=== PATIENT | female | born 1990 | race Caucasian/White ===

== ENCOUNTER 2020-10-27 22:25 | Emergency (ER) | payer SELFPAY | END 2020-10-27 23:22 | disposition left against medical advice (07) | LOC: ER1 22:25 | DX: Z53.21 Procedure and treatment not carried out due to patient leaving prior to being seen by health care provider (principal) ==

== ENCOUNTER 2020-10-30 16:41 | Emergency (ER) | payer OTHER ==
[2020-10-30] MEDS ORDERED: DOXYCYCLINE HY100 MG PO (18:16)
[2020-10-30] MEDS ORDERED: FLAGYL500 MG PO (18:16)
[2020-10-30] MEDS ORDERED: OMNICEF 300 MG300 MG PO (18:44)
[2020-11-02 17:10] LABS: CHLAMYDIA BY NAA Negative (Negative); GONOCOCCUS BY NAA Negative (Negative); TRICH VAG BY NAA Positive (Negative)
== END 2020-10-30 19:48 | disposition home or self-care (01) ==
LOC: ER1 16:41
PROVIDERS: Emergency Medicine
DX: A59.9 Trichomoniasis, unspecified (principal); F17.210 Nicotine dependence, cigarettes, uncomplicated; Z20.2 Contact with and (suspected) exposure to infections with a predominantly sexual mode of transmission
CPT/HCPCS: 81001; 84703; 87086; 87210; 87661; 96372; 99283; J0696

== ENCOUNTER 2020-11-12 21:29 | Emergency (ER) | payer OTHER ==
[~2020-11-12 21:29] MED LIST: DOXYCYCLINE HY100 MG PO; FLAGYL500 MG PO; OMNICEF 300 MG300 MG PO
== END 2020-11-12 23:40 | disposition home or self-care (01) ==
LOC: ER1 21:29
DX: Z53.21 Procedure and treatment not carried out due to patient leaving prior to being seen by health care provider (principal)

== ENCOUNTER 2021-02-05 17:40 | Emergency (ER) | payer OTHER ==
[2021-02-05 18:21] LABS: HEMOGLOBIN 14.4 gm/dl (12.3-15.3); RED BLOOD COUNT 4.84 M/UL (4.00-5.10); WHITE BLOOD COUNT 7.4 K/UL (4.5-11.0)
[2021-02-05 18:44] LABS: BUN/CREATININE RATIO 15 (0-10)
[2021-02-05] MEDS ORDERED: BENTYL 20MG TAB20 MG PO (20:31)
[2021-02-05] MEDS ORDERED: ZOFRAN4 MG PO (20:31)
[2021-02-05] MEDS ORDERED: FLORASTOR250 MG PO (20:32)
== END 2021-02-05 21:09 | disposition home or self-care (01) ==
LOC: ER1 17:40
PROVIDERS: Physician Assistant Medical
DX: R10.84 Generalized abdominal pain (principal); R19.7 Diarrhea, unspecified; R11.10 Vomiting, unspecified; F17.210 Nicotine dependence, cigarettes, uncomplicated; Z90.49 Acquired absence of other specified parts of digestive tract
CPT/HCPCS: 80053; 81001; 83690; 85025; 96374; 96375; 99284; J2270; J2405; Q9967

== ENCOUNTER 2021-03-17 14:44 | Emergency (ER) | payer OTHER ==
[~2021-03-17 14:44] MED LIST changes: +BENTYL 20MG TAB20 MG PO; +FLORASTOR250 MG PO; +ZOFRAN4 MG PO
== END 2021-03-17 18:50 | disposition home or self-care (01) ==
LOC: ER1 14:44
DX: L02.01 Cutaneous abscess of face (principal)
CPT/HCPCS: 99282